=== PATIENT | male | born 1985 | race Caucasian/White ===

== ENCOUNTER 2025-02-08 00:49 | Emergency (ER) | payer OTHER ==
[~2025-02-08] VITALS: Ht 172.7 cm; Wt 100.0 kg
[2025-02-08 01:14] VITALS: TEMP 36.9; O2SAT 98
[2025-02-08] MEDS: LIDOCAINE HCL/PF 1% 10 MG/ML 5ML VIAL INFIL ONE (02:15)
[2025-02-08] MEDS: BACITRACIN ZINC OINT UDPKT TOP ONE (02:15)
[2025-02-08] MEDS: LIDOCAINE HCL/PF 1% 10 MG/ML 5ML VIAL INFIL NR (04:08)
[2025-02-08] MEDS: BACITRACIN ZINC OINT UDPKT TOP NR (04:09)
[2025-02-08 04:31] VITALS: BP 166/100; PULSE 75; RESP 18; O2SAT 95
== END 2025-02-08 04:35 | disposition home or self-care (01) ==
LOC: ER 00:49
DX: S61.211A Laceration without foreign body of left index finger without damage to nail, initial encounter (principal); I10 Essential (primary) hypertension; W23.0XXA Caught, crushed, jammed, or pinched between moving objects, initial encounter; Y93.89 Activity, other specified; Y92.89 Other specified places as the place of occurrence of the external cause; Y99.8 Other external cause status
CPT/HCPCS: 99283; 73130; 12002; J2003